=== PATIENT | male | born 1955 | race Two or more races ===

== ENCOUNTER 2018-02-03 09:42 | Day surgery (SDC) | payer OTHER ==
[2018-02-03] MEDS ORDERED: PROPOFOL 40 ML (11:13)
== END 2018-02-03 11:42 | disposition home or self-care (01) ==
LOC: GIL 09:42
DX: R13.10 Dysphagia, unspecified (principal); K21.0 Gastro-esophageal reflux disease with esophagitis; K29.70 Gastritis, unspecified, without bleeding; I10 Essential (primary) hypertension; E78.5 Hyperlipidemia, unspecified
CPT/HCPCS: 43239; 88305; 88312; 88313